=== PATIENT | female | born 1985 | race Caucasian/White ===

== ENCOUNTER 2019-03-07 06:14 | Emergency (ER) | payer SELFPAY ==
[~2019-03-07] VITALS: Ht 162.6 cm; Wt 62.6 kg
[2019-03-07 06:15] VITALS: BP 145/77
--- NOTE | 2019-03-07 06:15 | NUR ---
33 Y/O FEMALE BIBA. PRESENTS TO ED, C/O ALOC. PER GEAR NICKER, EMS RESPONDED ON SCENE TO PT WITH ALOC. PT INITIALLY WAS RESPONDING NONSENSICAL GERMAN AND UNABLE TO GIVE ANY VIABLE INFORMATION ABOUT WELL BEING. ENROUTE, PT WAS BEING SEXUALLY INAPPROPRIATE, PRESENTS DISORGANIZED, BIZARRE AND HYPERACTIVE WITH MOVEMENTS. ON ARRIVAL AT ED, PT BECAME NONVERBAL; REFUSED TO ANSWER ANY QUESTIONS, CONTINUES TO BE BIZARRE WITH A FLAT AFFECT. ERMD MADE AWARE. WILL CONTINUE TO MONITOR.
--- NOTE | 2019-03-07 06:15 | NUR ---
PT BIBA BLS. TAKEN TO BED 9
--- NOTE | 2019-03-07 06:18 | NUR ---
Dr. Romo examining patient.
[2019-03-07] MEDS ORDERED: NACL 0.9% 1,000 ML IV ONE ×2 (06:20→07:40)
--- NOTE | 2019-03-07 06:20 | NUR ---
INITIATED 4 POINT VELCRO RESTRAINT DUE TO PT DISRUPTING MEDICAL INTERVENTIONS SUCH PULLING OUT IV LINE. UNABLE TO REORIENT PT.
--- NOTE | 2019-03-07 06:30 | NUR ---
PERFORMED STRAIGHT CATHERIZATION WITH KAITY MARTIN. PT TOLERATED PROCECURE WELL. RECEIVED 100ML URINE RETURN.
[2019-03-07 07:04] LABS: BASOPHILS % (AUTO) 0.3 % (0.0-2.0); HEMATOCRIT 40.2 % (36-48); HEMOGLOBIN 13.3 g/dL (12.0-16.0); LYMPHOCYTES # (AUTO) 1.2 K/uL (2.5-16.5); LYMPHOCYTES % (AUTO) 10.3 % (20.5-51.1); MEAN CORPUSCULAR HEMOGLOBIN 32 pg (27-31); MEAN CORPUSCULAR HGB CONC 33 g/dL (33-37); MEAN CORPUSCULAR VOLUME 95.2 fL (80-94); MONOCYTES # (AUTO) 0.7 K/uL (0.8-1.0); MONOCYTES % (AUTO) 5.6 % (1.7-9.3); NEUTROPHILS % (AUTO) 83.8 % (42.2-75.2); PLATELET COUNT (AUTO) 385 K/uL (140-450); RED BLOOD CELL COUNT(AUTO) 4.22 MIL/uL (4.20-5.40); RED CELL DISTRIBUTION WIDTH 14.1 % (11.6-13.7)
--- NOTE | 2019-03-07 07:11 | NUR ---
RECEIVED REPORT FROM SHERRY MARTIN. PT IN BED. EYES OPEN SPONTANEOUSLY AND MOVEMENT NOTED TO ALL LIMBS. EYES TRACKING. PT NOT ANSWERING TO VERBAL QUESTIONING. ON SOFT LIMB RESTRAINTS TO ALL 4 EXTREMITIES. NO INJURIES NOTED. FLACC 0. Addendum: 03/07/19 at 0743 by NIRU NOTED BY KARINA MADRIGAL RN Addendum: 03/07/19 at 0743 by NIRU NYLON/VELCO RESTRAINTS TO ALL WRISTS AND ANKLE
--- NOTE | 2019-03-07 07:15 | NUR ---
Dr. Tan examining patient.
[2019-03-07 07:17] LABS: BARBITURATE, URINE NEG. ng/ml (NEG <=200); BENZODIAZEPINE, URINE NEG. ng/mL (NEG <=200); CANNABINOID, URINE NEG. ng/mL (NEG <=50); COCAINE, URINE NEG. ng/mL (NEG <=300); OPIATE, URINE NEG. ng/mL (NEG <=2000); PHENCYCLIDINE SCREEN,URINE POS. ng/mL (NEG <=25)
--- NOTE | 2019-03-07 07:19 | NUR ---
PT VERBALLY RESPONDING TO DR. BHARDWAJ'S QUESTIONS. PT STATES SHE IS NOT HOMELESS- HAS A PERMANENT RESIDENCE.
[2019-03-07] MEDS ORDERED: LORazepam 2 MG/ML VIAL IVP ONE (07:20)
[2019-03-07 07:21] LABS: SALICYLATE < 2.8 mg/dL (2.8-20.0)
[2019-03-07 07:23] LABS: ANION GAP 15.1 (8-16); CARBON DIOXIDE 26.5 mmol/L (21-32); CHLORIDE 102 mmol/L (98-107); GFR ARICAN-AMERICAN 83 mL/min (>90); GLUCOSE 107 mg/dL (74-106); POTASSIUM 3.6 mmol/L (3.5-5.1); SODIUM SERUM 140 mmol/L (136-145); UREA NITROGEN, BLOOD 11 mg/dL (7-18)
[2019-03-07 07:36] LABS: ASPARTATE AMINOTRANSFERASE 25 U/L (15-37); TOTAL BILIRUBIN 0.6 mg/dL (0.0-1.0)
[2019-03-07 07:37] LABS: ACETAMINOPHEN < 0.5 ug/ml (10-30)
--- NOTE | 2019-03-07 08:05 | NUR ---
REMOVED NYLON WRIST AND ANKLE RESTRAINTS PER DR. BHARDWAJ ORDERS.
--- NOTE | 2019-03-07 08:06 | NUR ---
PT IN BED, COOPERATIVE, CALM. ANSWERING TO VERBAL QUESTIONING. NO ATTEMPTS TO GET OUT OF BED OR PULL OUT IV.
--- NOTE | 2019-03-07 08:45 | NUR ---
PT SLEEPING IN BED, RESPIRATIONS EVEN AND UNLABORED.
--- NOTE | 2019-03-07 09:15 | NUR ---
Patient discharged with v/s stable. Written and verbal after care instructions given and explained. Provided substance abuse resource packet to patient. Patient verbalized understanding. GCS 15 at this time. Ambulatory with steady gait. All questions addressed prior to discharge. Advised to follow up with PMD. #20G IV LAC removed with minimal blood loss and lumen completely intact.
[2019-03-07 09:22] VITALS: BP 129/84
--- NOTE | 2019-03-08 12:58 | NUR ---
Late entry. Confirmed with RN that 0.9 NS IV 1000ml completed at 0740
== END 2019-03-07 09:15 | disposition home or self-care (01) ==
LOC: MED 06:14 → EDBD 06:14 → MED 09:15
DX: G93.40 Encephalopathy, unspecified (principal); R41.82 Altered mental status, unspecified; F19.10 Other psychoactive substance abuse, uncomplicated; F15.10 Other stimulant abuse, uncomplicated; F17.210 Nicotine dependence, cigarettes, uncomplicated
CPT/HCPCS: 36415; 80053; 80305; 82140; 83605; 85025; 87040; 93005; 96361; 96374; 99284; C1758; G0480; G0482; J2060; J7030